=== PATIENT | female | born 1985 | race Caucasian/White ===

== ENCOUNTER 2016-08-27 12:58 | Day surgery (SDC) | payer OTHER ==
[~2016-08-27] VITALS: Ht 172.7 cm; Wt 108.0 kg
[~2016-08-27 12:58] MED LIST: DICY10CA56 PO; LORA1TAB PO; Lactated Ringer's 1,000 ML IV ONE; METH10TA2 PO; OMEP20CA11 PO; PANT40TA3 PO; VENL150C PO
[2016-08-27] MEDS ORDERED: Propofol 10,000 mCg/mL 20 mL Inj ONE ×2 (12:59)
[2016-08-27] MEDS ORDERED: fentaNYL-PF 50 mCg/mL 2 mL Inj ONE (12:59)
--- NOTE | 2016-08-27 14:36 | PCM.HPANE ---
Patient Data Surgeon Admitting Provider: Attending Provider:Juan Luis Mccormick MD Primary Care Physician:Chadwick Canela DO Other Provider:[facility] Reason for Visit Diarrhea, Epigastric Pain Ht/WT & BMI Body Mass Index Allergies Coded Allergies: codeine (Verified Allergy, Severe, Rash,Itching,, 03/13/16) Diabetes History Hx Diabetes?: No Medications Reported Medications Methylphenidate (Ritalin)10 Mg Utewpl71 Mg PO BID Ref 0 08/26/[address] 40 Mg Tablet.dr40 Mg PO DAILY Ref 0 08/26/16 Omeprazole 20 Mg Capsule.dr20 Mg PO DAILY Ref 0 08/26/16 Lorazepam 1 Mg Tablet1 Mg PO TID PRN For Anxiety Ref 0 08/26/16 Venlafaxine ER (Effexor XR)150 Mg Qfstrmb584 Mg PO DAILY Ref 0 08/26/16 Dicyclomine (Bentyl)10 Mg Yinswze42 Mg PO QID 08/26/16 Discontinued Scripts Dicyclomine (Bentyl)20 Mg Dfcqix94 Mg PO QID PRN For Pain #12 TABLET Prov:Jem Fallon DO 03/13/16 Nitrofurantoin Monohyd/M-Cryst (MacroBid)100 Mg Ugtwift789 Mg PO BID #7 CAPSULE Ref 0 Prov:Bunny Naqvi MD 02/10/16 Calcium Carbonate (Tums Ultra Strength)1,177 Mg Tab.chew1,177 Mg PO 5XD #60 Prov:Bunny Naqvi MD 02/10/16 Polyethylene Glycol 3350 (Miralax)17 Gm Powd.pack17 Gm PO TID #1 CANNISTER Prov:Theresa Galeano DO 11/18/15 Ranitidine 150 Mg Xrhvvuk550 Mg PO BID 30 Days Ref 0 Prov:Theresa Galeano DO 11/18/15 History Cardiovascular History: Denies:: Congestive Heart Failure Hypertension Respiratory History: Denies:: Tuberculosis Hx Surgeries?: No (2 laps, breast recduction ) Hx Diabetes: No Hx Alcohol Use: Yes (occ)Hx Substance Use: No Smoking Status: Former Smoker Have You Smoked inLast 12 mo: No Stop/Bang Risk Assessment Category Category 1A: Patient has history of documented sleep apnea, and HAS NOT received any narcotic, sedative or anesthesia administration during this stay. Category 1B: Patient has history of documented sleep apnea, and HAS received any narcotic , sedative or anesthesia administration during this stay Category 2: Patient has SUSPECTED Obstructive Sleep Apnea, and HAS received any narcotic , sedative or anesthesia administration during this stay. Category 3: Patient has SUSPECTED Obstructive Sleep Apnea and HAS NOT received narcotic, sedative or anesthesia administration during this stay. Category 4: Outpatient in Procedural Areas with known sleep apnea or who screen positive for High Risk via the STOP/BANG questionnaire. Exam Exam General Appearance: Alert, Oriented X3, Cooperative, No Acute Distress HEENT/AIRWAY: MP 3, Mouth Opening (small) Lungs: Clear to Auscultation Heart: Exam Unremarkable Plan Impression Patient chart reviewed, patient interviewed and anesthestic plan with risks, benefits, and alternatives discussed, and informed consent obtained. ASA Physical Status: ASA2 Mod Systemic Disease Anesthetic Plan: MAC Bene/Risks/Altern/Consents: Yes HP Complete Prior to Induction: Yes Otf Keen MD Aug 27, 2016 08:13
[2016-08-27 15:13] VITALS: BP 132/87; PULSE 69; RESP 16; O2SAT 100
--- NOTE | 2016-08-27 15:57 | PCM.ANEP2 ---
Post Anesthesia Evaluation ASA/CMS Post Anesthesia VS in Patient's Normal Range?: Yes Resp Stable; Airway Patent?: Yes CV Function & Hydration Stable: Yes Mental Status Recovered?: Yes Pain control Satisfactory?: Yes N/V Control Satisfactory?: Yes Otf Keen MD Aug 27, 2016 15:57
[2016-08-27 15:58] VITALS: BP 115/68; PULSE 72; RESP 16; O2SAT 100
[2016-08-27 16:05] VITALS: BP 117/79; PULSE 74; RESP 16; O2SAT 100
[2016-08-27 16:11] VITALS: BP 126/83; PULSE 70; RESP 16; O2SAT 100
--- NOTE | 2016-08-27 23:17 | ENDO ---
[address] [address] ENDOSCOPY PROCEDURE PATIENT: SETH VALENZUELA : 1985 MR#: [id number] ADMIT: 08/27/2016 JOB ID: [id number] DATE OF PROCEDURE: 08/27/2016 TYPE OF OPERATION: Esophagogastroduodenoscopy, biopsy and colonoscopy. PREOPERATIVE DIAGNOSIS(ES): 1. Diarrhea. 2. Epigastric pain. POSTOPERATIVE DIAGNOSIS(ES): 1. Poor prep for colonoscopy. 2. Distal esophagitis. ANESTHESIA: Monitored anesthesia care. COMPLICATIONS: None. ESTIMATED BLOOD LOSS: Minimal. DESCRIPTION OF PROCEDURE: After risks and benefits have been explained to the patient, informed consent was obtained. After anesthesia administered, the upper endoscope was then inserted into the mouth and intubated into the esophagus, stomach, and second portion of duodenum. Mucosa carefully examined. the procedure, scope withdrawn, and procedure terminated. A colonoscope was then inserted from rectum to cecum and mucosa carefully examined. Prep of the patient was poor and inadequate. Procedure was then aborted. FINDINGS: Upon inspection of the esophagus, there was mild distal esophagitis that was seen. Z-line located 40 cm from incisors. Upon entering the stomach, the stomach appeared normal without masses, ulcers, or lesions. Retroflexion was normal of duodenal bulb, first and second portions normal. Biopsies taken of antrum, body of stomach, duodenum and distal esophagus. Upon inspection of the anus, no masses, hemorrhoids, ulcers or fissures that were seen. During the examination there was poor prep, liquid stool and solid stool that was seen. Procedure was aborted. IMPRESSION: 1. Poor prep. 2. Distal esophagitis, status post biopsy. RECOMMENDATION: Await pathology results. Repeat colonoscopy with anesthesia for diarrhea with two day prep.
--- NOTE | 2016-08-30 15:23 | PATH ---
SURGICAL PATHOLOGY Attending Physician:Juan Luis Mccormick MD CASE STATUS: Signed Out PATIENT NAME: SETH VALENZUELA PID: [id number] : 1985 DATE COLLECTED:08/27/2016 00:00 SPECIMEN: 1: Duodenum, Biopsy 2: Stomach, Antrum, Biopsy 3: Gastric, Biopsy 4: Esophagus, Biopsy CLINICAL HISTORY: 1).DUODENUM BIOPSY 2).ANTRUM BIOPSY 3).GASTRIC BODY BIOPSY 4).DISTAL ESOPHAGUS BIOPSY FINAL DIAGNOSIS: 1.DUODENUM, BIOPSY: DUODENAL MUCOSA WITH MILDLY INCREASED INTRAEPITHELIAL LYMPHOCYTES, WITHOUT BLUNTING OF THE VILLOUS ARCHITECTURE (SEE COMMENT). Negative for granulomas, dysplasia and malignancy. 2.STOMACH, ANTRUM, BIOPSY: ANTRAL MUCOSA WITH NO DIAGNOSTIC ABNORMALITY. Negative for Helicobacter organisms by immunohistochemistry. Negative for intestinal metaplasia. Negative for dysplasia and malignancy. 3.STOMACH, BODY, BIOPSY: BODY-TYPE MUCOSA WITH NO DIAGNOSTIC ABNORMALITY. Negative for Helicobacter organisms by immunohistochemistry. Negative for intestinal metaplasia. Negative for dysplasia and malignancy. 4.DISTAL ESOPHAGUS, BIOPSY: SQUAMOUS EPITHELIUM WITH NO DIAGNOSTIC ABNORMALITY. Intraepithelial eosinophils are not increased. Negative for dysplasia and malignancy. ICD10 code R10.9 NOTE: The histologic sections show essentially normal length villi with intraepithelial lymphocytosis. The differential diagnosis of this variable villous abnormality includes partially treated or clinically latent celiac sprue, dermatitis herpetiformis, infectious gastroenteritis, stasis, lymphocytic enterocolitis, or other protein allergies. In addition, similar small bowel histology can be seen in patients with other autoimmune disorders, idiopathic inflammatory bowel disease, and may be linked to the use of nonsteroidal anti-inflammatory drugs or Helicobacter pylori infection. No obvious parasitic organisms are identified, and there is no evidence of Whipple' s disease. GROSS DESCRIPTION: The specimen is received in four formalin filled containers labeled with the patient's name. 1). The specimen is sublabeled "duodenum" and consists of 2 portions of tissue which aggregate to 0.3 x 0.3 x 0.2 CM. The specimen is entirely submitted in cassette 1A. 2). The specimen is sublabeled "antrum" and consists of 2 portions of tissue which aggregate to 0.3 x 0.3 x 0.2 CM. The specimen is entirely submitted in cassette 2A. 3). The specimen is sublabeled "gastric body" and consists of 2 portions of tissue which aggregate to 0.3 x 0.3 x 0.2 CM. The specimen is entirely submitted in cassette 3A. 4). The specimen is sublabeled "distal esophagus" and consists of a 0.2 x 0.2 x 0.2 CM portion of tissue which is entirely submitted in cassette 4A. 08/28/2016 [facility] MICRO DESCRIPTION: 2. 3. Immunohistochemical stains were performed on blocks 2 and 3 to evaluate for Helicobacter organisms and are both negative. A control stain showed appropriate reactivity. *This test was developed and its performance characteristics determined by [employer]. It has not been cleared or approved by the [place]. [place]. Food and Drug Administration. The FDA has determined that such clearance or approval is not necessary. This test is used for clinical purposes. It should not be regarded as investigational or for research. ICD-9 CODES: CPT CODES: 1: 96175 2: 88795, 17271 3: 95666, 82258 4: 99799 Electronically Signed Out Taty Pimentel MD [facility] Pathology [facility] [address], [place] [address] Technical component performed at [facility], [address], [place], [address]
== END 2016-08-27 23:59 | disposition home or self-care (01) ==
LOC: END 12:58
PROVIDERS: ATTEND Internal Medicine Gastroenterology
DX: R19.7 Diarrhea, unspecified (principal); R10.13 Epigastric pain; Z87.891 Personal history of nicotine dependence; Z53.8 Procedure and treatment not carried out for other reasons
CPT/HCPCS: 43239; 88305; 88342; J2250; J3010; J7120